=== PATIENT | female | born 1960 | race Caucasian/White ===

== ENCOUNTER 2021-11-06 09:28 | Outpatient (CLI) | payer BC | END 2021-11-06 23:59 | disposition home or self-care (01) | LOC: 64 CT 09:28 | PROVIDERS: ATTEND Orthopaedic Surgery | DX: Z47.1 Aftercare following joint replacement surgery (principal); K57.30 Diverticulosis of large intestine without perforation or abscess without bleeding; Z96.642 Presence of left artificial hip joint | CPT/HCPCS: 73700 ==